=== PATIENT | female | born 1960 | race Caucasian/White ===

== ENCOUNTER 2016-11-02 07:02 | Inpatient (IN) | payer OTHER ==
[2016-10-26 11:22] LABS: BASOPHILS 0.2 %; BASOPHILS ABSOLUTE 0.01 10/3/uL (0.0-0.16); EOSINOPHILS 0.6 %; EOSINOPHILS ABSOLUTE 0.03 10/3/uL (0.0-0.53); HEMATOCRIT 39.6 % (36.0-48.0); HEMOGLOBIN 13.2 g/dL (12.0-16.0); IMMATURE GRANULOCYTES 0.2 %; IMMATURE GRANULOCYTES ABSOLUTE 0.01 10/3/uL (0.0-0.11); LYMPHOCYTES 16.4 %; LYMPHOCYTES ABSOLUTE 0.83 10/3/uL (0.67-4.30); MEAN CORPUS HGB CONC 33.3 g/dL (32.0-36.0); MEAN CORPUSCULAR HEMOGLOB 31.9 pg (26.0-34.0); MEAN CORPUSCULAR VOLUME 95.7 fL (80-100); MEAN PLATELET VOLUME 9.2 fL (9.2-13.0); MONOCYTES 8.9 %; MONOCYTES ABSOLUTE 0.45 10/3/uL (0.21-1.20); NEUTROPHILS 73.7 %; NEUTROPHILS ABSOLUTE 3.73 10/3/uL (2.02-8.40); PLATELET COUNT 186 10/3/uL (150-400); RBC DISTRIBUTION WIDTH 15.3 % (12.0-16.0); RED CELL COUNT 4.14 10/6/uL (4.0-5.6); WHITE BLOOD CELLS 5.1 10/3/uL (4.5-10.5)
[2016-10-26 11:24] LABS: MANUAL DIFF NO %
[2016-10-26 11:30] LABS: PROTIME (NOT ORD) 13.2 SEC (12.0-14.5)
[2016-10-26 11:41] LABS: ALBUMIN 3.4 G/DL (3.5-5.0); ALKALINE PHOSPHATASE 89 U/L (45-117); BUN (BLOOD UREA NITROGEN) 10 MG/DL (6-23); CALCIUM, SERUM 8.6 MG/DL (8.5-10.4); CHLORIDE, SERUM 105 MMOL/L (96-112); CO2 (CARBON DIOXIDE) 32 MMOL/L (24-34); CREATININE 0.52 MG/DL (0.55-1.02); GFR AFRICAN AMERICAN 122 ML/MIN (>=60); GFR NON AFRICAN AMERICAN 105 ML/MIN (>=60); GLOBULIN 3.4 G/DL (2.5-4.1); GLUCOSE, SERUM 95 MG/DL (60-99); POTASSIUM, SERUM 3.9 MMOL/L (3.5-5.3); SGOT(AST) 14 U/L (5-40); SGPT(ALT) 20 U/L (5-65); SODIUM, SERUM 141 MMOL/L (135-148); TOTAL BILIRUBIN 0.5 MG/DL (0-1.2); TOTAL PROTEIN 6.8 G/DL (6.0-8.5)
[2016-10-26 14:01] LABS: ASCORBIC ACID (UR NOT ORDER) NEG (NEG); BILIRUBIN, URINE NEGATIVE (NEG); KETONE, URINE NEGATIVE (NEG); LEUKOCYTE ESTERASE(NOT OR TRACE (NEG); WBC (NOT ORDERED) (RFLEX) 4 (0-5)
--- NOTE | ~2016-11-02 | OP ---
Record Of Operation [facility] [address] [place]. [address] NAME: SAUL VELEZ : 56 STATUS : ADM IN PAT#: [id number] AGE: 56 ADM/REG DATE : 11/02/16 MR#: [id number] REPORT SERV DATE: 11/02/16 DICTATED BY: SELVIN MCCLODU JR. DATE: 11/02/16 REPORT STATUS : Draft TRANSCRIBED BY: MODL DATE: 11/02/16 DATE OF PROCEDURE: 11/02/2016 PREOPERATIVE DIAGNOSES: Left upper lobe non-small cell lung cancer, chronic obstructive pulmonary disease, previous ileostomy with ureteral diversion, history of cervical cancer, and rheumatoid arthritis. POSTOPERATIVE DIAGNOSES: Left upper lobe non-small cell lung cancer, chronic obstructive pulmonary disease, previous ileostomy with ureteral diversion, history of cervical cancer, and rheumatoid arthritis. NAME OF OPERATION: Bronchoscopy, left thoracoscopy with left upper lobe posterior segmentectomy, mediastinal node dissection, alden stations 5, 7, 9, 11L; and intercostal nerve block. SURGEON: Selvin Mccloud M.D. RESIDENT SURGEON: Sergio Santillan MD LABOR DELIVERY RN: Allison Hannon. ANESTHESIA: General endotracheal. FINDINGS: The patient was noted to have normal bronchial anatomy on bronchoscopy. Mucous secretions were evacuated. Upon exploration of the chest, there was small areas of adhesions that were not significant. It only took about five minutes to take down the adhesions. We could palpate the mass in the posterior segment of the left upper lobe. Our initial decision on dividing the parenchyma, we thought was grossly well away from the tumor. Frozen section confirmed the margins were close. We decided to take an additional wedge excision encompassing about another centimeter and a half of lung parenchyma. It was difficult to tell the true anatomical posterior segment. There were no other abnormality that could be palpated. Her mediastinal nodes had a granulomatous appearance to them. Final pathology is pending. DETAILS OF OPERATION: After adequate general anesthesia, the patient was intubated. Bronchoscopy was performed noting no endobronchial lesions. Left-sided double lumen endotracheal tube was then placed. The patient was then positioned in the right lateral decubitus position. The left chest was prepped and draped in routine sterile fashion. A small incision was made overlying the lower intercostal space. A separate anterior trocar incision was also made. Through these two incision sites, the above findings were noted. Adhesions were taken down with electrocautery. We were able to mobilize the inferior pulmonary ligament in the lower lobe. Some of the adhesions along the left upper lobe lateral chest wall were taken down. The mass was easily palpated. The hilar structures were dissected out. It was felt that this was contained within the posterior segment of the left upper lobe. After creating our anatomical dissection, we were able to then divide the lung parenchyma we thought the division of the posterior segment was. We thought we are Record Of Operation [address] [address] NAME: SAUL VELEZ : 56 STATUS : ADM IN PAT#: [id number] AGE: 56 ADM/REG DATE : 11/02/16 MR#: [id number] REPORT SERV DATE: 11/02/16 DICTATED BY: SELVIN MCCLOUD JR. DATE: 11/02/16 REPORT STATUS : Draft TRANSCRIBED BY: JAYE DATE: 11/02/16 clear of the tumor. Upon removing the posterior segment, it looked like our margins were close. We were able to take an additional centimeter and a half of lung parenchyma. We could not take anymore without compromising the left upper lobe. Multiple firings of FARNAZ stapler were utilized to perform this. Nodes from the AP window, subcarinal, inferior pulmonary ligaments, and hilar regions were dissected out. An intercostal nerve block was performed. A 28-Turkmen chest tube was then placed. Hemostasis was obtained. The lung was reinflated. The trocar sites were closed with running Vicryl sutures. The skin was closed with running monofilament suture. A Dermabond dressing was applied. The procedure was terminated at this point. The patient tolerated the procedure well and taken back to recovery room in stable condition. BENJI/JAYE Selvin Mccloud Jr., M.D. / [id number] CC: Dangelo Ornelas Jr., WILEY ALLEN
[~2016-11-02 07:02] MED LIST: ADVAIR250 INH; ALBUTEROL0.63 MG/3 INH; AMITIZA24 PO; ARAVA10 PO; ASAB PO; BUTRANS1 EAC3 TOP; FLEX PO; FLONASE NAS; FOLIC PO; IRON PO; KRISTALOSE10 GM PO; MTX2.5 PO; NEUR400 PO; NORCO1 TAB PO; ORAZINC110 MG PO; PLAQ200B PO; PROVHFA INH; REST15 PO; SINGULAIR1 PO; SPIRIVA INH; ZANTAC150 MG PO
[2016-11-03 05:02] LABS: BASOPHILS 0.1 %; BASOPHILS ABSOLUTE 0.01 10/3/uL (0.0-0.16); EOSINOPHILS 0 %; HEMOGLOBIN 11.3 g/dL (12.0-16.0); IMMATURE GRANULOCYTES 0.2 %; IMMATURE GRANULOCYTES ABSOLUTE 0.02 10/3/uL (0.0-0.11); LYMPHOCYTES 9.9 %; LYMPHOCYTES ABSOLUTE 0.92 10/3/uL (0.67-4.30); MEAN CORPUS HGB CONC 33.4 g/dL (32.0-36.0); MEAN CORPUSCULAR HEMOGLOB 32.3 pg (26.0-34.0); MEAN CORPUSCULAR VOLUME 96.6 fL (80-100); MEAN PLATELET VOLUME 9.1 fL (9.2-13.0); MONOCYTES 7.9 %; MONOCYTES ABSOLUTE 0.73 10/3/uL (0.21-1.20); NEUTROPHILS 81.9 %; NEUTROPHILS ABSOLUTE 7.59 10/3/uL (2.02-8.40); PLATELET COUNT 164 10/3/uL (150-400); RBC DISTRIBUTION WIDTH 15.4 % (12.0-16.0)
[2016-11-03 05:03] LABS: HEMATOCRIT 33.8 % (36.0-48.0); MANUAL DIFF NO %; WHITE BLOOD CELLS 9.3 10/3/uL (4.5-10.5)
[2016-11-03 05:14] LABS: BUN (BLOOD UREA NITROGEN) 9 MG/DL (6-23); CHLORIDE, SERUM 107 MMOL/L (96-112); CO2 (CARBON DIOXIDE) 29 MMOL/L (24-34); CREATININE 0.46 MG/DL (0.55-1.02); GFR AFRICAN AMERICAN 127 ML/MIN (>=60); GFR NON AFRICAN AMERICAN 110 ML/MIN (>=60); POTASSIUM, SERUM 4.4 MMOL/L (3.5-5.3); SODIUM, SERUM 140 MMOL/L (135-148)
[2016-11-03 05:15] LABS: GLUCOSE, SERUM 154 MG/DL (60-99)
[2016-11-03] MEDS ORDERED: NORCO1 TAB PO (09:28)
== END 2016-11-03 13:03 | disposition home or self-care (01) | DRG 165 ==
LOC: SDC/OF 07:02 → 5NO 14:38
PROVIDERS: Thoracic Surgery (Cardiothoracic Vascular Surgery)
PROC: 07T74ZZ Resection of Thorax Lymphatic, Percutaneous Endoscopic Approach (ICD-10-PCS; 2016-11-02)
PROC: 3E0T3BZ Introduction of Anesthetic Agent into Peripheral Nerves and Plexi, Percutaneous Approach (ICD-10-PCS; 2016-11-02)
PROC: 0BJ08ZZ Inspection of Tracheobronchial Tree, Via Natural or Artificial Opening Endoscopic (ICD-10-PCS; 2016-11-02)
PROC: 0BBG4ZZ Excision of Left Upper Lung Lobe, Percutaneous Endoscopic Approach (ICD-10-PCS; principal; 2016-11-02 08:45)
DX: C34.12 Malignant neoplasm of upper lobe, left bronchus or lung (principal); J44.9 Chronic obstructive pulmonary disease, unspecified; Z93.2 Ileostomy status; Z85.41 Personal history of malignant neoplasm of cervix uteri; M06.9 Rheumatoid arthritis, unspecified; Z87.891 Personal history of nicotine dependence; K21.9 Gastro-esophageal reflux disease without esophagitis; G47.33 Obstructive sleep apnea (adult) (pediatric); D06.9 Carcinoma in situ of cervix, unspecified
CPT/HCPCS: 36415; 71020; 80048; 80053; 81001; 82962; 83036; 85025; 85610; 86850; 86900; 86901; 87641; 88305; 88307; 88313; 88341; 88342; 93005; 94640; A9270-GY; J0690; J1170; J1885; J2250; J2370; J2405; J2710; J2795; J3010; P9045